=== PATIENT | female | born 1945 | race African-American/Black ===

== ENCOUNTER 2018-04-12 15:02 | Emergency (ER) | payer MEDICARE, MEDICAID ==
[~2018-04-12] VITALS: Ht 167.6 cm; Wt 78.0 kg
[~2018-04-12 15:02] MED LIST: AMLO10TA80 PO; ASPI-1159 PO; ATOR10TA PO; BENA40TA9 PO; COR12 PO; DIPH25CA83 PO; ESCI20TA36 PO; OMEP20CA4 PO; SERT25TA74 PO
[2018-04-12 16:28] LABS: BASOPHILS % 0.5 % (0.0-2.0); EOSINOPHILS % 1.5 % (0.0-5.0); HEMATOCRIT. 34.9 % (36.0-48.0); HEMOGLOBIN. 11.8 g/dL (12.0-16.0); LYMPHOCYTES % 37.1 % (20.0-50.0); MEAN CORPUSCULAR HEMOGLOBIN 31.6 pg (28.0-32.0); MEAN CORPUSCULAR VOLUME 93.2 fL (81.0-99.0); MEAN PLATELET VOLUME 8.2 fl (7.4-10.4); MONOCYTES % 11.5 % (2.0-8.0); NEUTROPHILS % 49.4 % (40.0-76.0); PLATELET 249 x1000/uL (130-400); RED BLOOD CELL COUNT 3.74 mill/uL (4.2-5.4)
[2018-04-12 16:33] LABS: CHLORIDE 103 mEq/L (98-107)
[2018-04-12] MEDS ORDERED: ASPIRIN 325MG TABLET PO ONE (18:00)
[2018-04-12 22:33] VITALS: BP 110/53
== END 2018-04-12 22:36 | disposition home or self-care (01) ==
LOC: ER 17:15
DX: R07.89 Other chest pain (principal); I11.9 Hypertensive heart disease without heart failure; Z95.1 Presence of aortocoronary bypass graft
CPT/HCPCS: 36415; 71045; 80053; 83690; 83880; 84484; 85025; 85379; 93005; 99285

== ENCOUNTER 2019-01-10 12:12 | Emergency (ER) | payer MEDICARE, MEDICAID ==
[~2019-01-10] VITALS: Ht 160 cm; Wt 82.0 kg
[~2019-01-10 12:12] MED LIST changes: -ASPI-1159 PO; +ASPI-1393 PO
[2019-01-10] MEDS ORDERED: MORPHINE SULFATE 2 MG/ML CPJ (NOT FOR IM USE) IV ONE (12:45)
[2019-01-10 13:08] LABS: BASOPHILS % 0.7 % (0.0-2.0); HEMATOCRIT. 35.2 % (36.0-48.0); HEMOGLOBIN. 11.9 g/dL (12.0-16.0); LYMPHOCYTES % 33.1 % (20.0-50.0); MEAN CORPUSCULAR HEMOGLOBIN 31.8 pg (28.0-32.0); MEAN PLATELET VOLUME 7.8 fl (7.4-10.4); MONOCYTES % 6.9 % (2.0-8.0); NEUTROPHILS % 58.3 % (40.0-76.0); PLATELET 237 x1000/uL (130-400); RED BLOOD CELL COUNT 3.75 mill/uL (4.2-5.4); RED CELL DISTRIBUTION WIDTH 13.5 % (11.6-14.6)
[2019-01-10 13:14] LABS: CHLORIDE 109 mEq/L (98-107)
[2019-01-10 14:43] LABS: CLARITY URINE CLEAR (CLEAR); COLOR URINE YELLOW (YELLOW); KETONES URINE NEGATIVE (NEGATIVE); LEUKOCYTE ESTERASE URINE NEGATIVE (NEGATIVE); NITRITE URINE NEGATIVE (NEGATIVE); OCCULT BLOOD URINE NEGATIVE (NEGATIVE); PROTEIN URINE NEGATIVE (NEGATIVE); SPECIFIC GRAVITY URINE 1.025 (1.005-1.030); UROBILINOGEN URINE 0.2 E.U./dL (0.2-1.0)
[2019-01-10 15:34] VITALS: BP 185/67
== END 2019-01-10 15:38 | disposition home or self-care (01) ==
LOC: ER 12:12
DX: M54.89 Other dorsalgia (principal); R09.1 Pleurisy; I11.9 Hypertensive heart disease without heart failure; Z95.1 Presence of aortocoronary bypass graft; Z88.8 Allergy status to other drugs, medicaments and biological substances
CPT/HCPCS: 36415; 71045; 72070; 72110; 73562; 80053; 81003; 84484; 85025; 93005; 96374; 99284; J2270